=== PATIENT | male | born 1960 | race Two or more races ===

== ENCOUNTER 2021-12-01 14:41 | Inpatient (IN) | payer MEDICAID ==
[~2021-12-01] VITALS: Ht 182.9 cm; Wt 69.0 kg
[2021-12-01] MEDS ORDERED: ONDANSETRON HCL 4 MG/2 ML VIAL IV ONE (15:15)
[2021-12-01] MEDS ORDERED: SODIUM CHLORIDE 0.9% 1,000 ML IV ONE ×2 (15:15→20:15)
[2021-12-01 15:49] LABS: Basophils # (auto) 0 10 ^3/uL (0-0.2); Basophils % (auto) 0.2 % (0.0-2.0); Eosinophils # (auto) 0 10 ^3/uL (0-0.8); Hematocrit 46.4 % (41.0-53.0); Hemoglobin 14.9 g/dL (13.5-17.5); Lymphocytes # (auto) 0.4 10 ^3/uL (0.4-5.4); Lymphocytes % (auto) 2.7 % (10.0-50.0); Mean Corpuscular Hemoglobin 32.1 pg (28.0-32.0); Mean Corpuscular Hgb Conc. 32.2 g/dL (32.0-36.0); Mean Corpuscular Volume 99.7 fL (80.0-100.0); Monocytes # (auto) 0.7 10 ^3/uL (0-1.3); Monocytes % (auto) 4.6 % (0.0-12.0); Neutrophils # (auto) 14.4 10 ^3/uL (1.6-8.6); Neutrophils % (auto) 92.5 % (37.0-80.0); Nucleated Red Blood Cells % 0.1 %; Red Blood Cells 4.65 10^6/uL (4.5-5.90); White Blood Cell 15.6 10^3/uL (4.4-10.8)
[2021-12-01 15:57] LABS: Albumin 3.2 g/dL (3.4-5.0); Calcium 10.5 mg/dL (8.5-10.1); Potassium 5.5 mmol/L (3.5-5.1)
[2021-12-01 16:00] LABS: Lactic Acid w/Reflex 2.7 mmol/L (0.4-2.0)
[2021-12-01 16:06] LABS: BUN/Creatinine Ratio 28.3; Bilirubin, Total 0.8 mg/dL (0.2-1.0); Total Protein 7.1 g/dL (6.4-8.2)
[2021-12-01] MEDS ORDERED: DEXTROSE (50%) 50ML SYRG IV PRN (16:30)
[2021-12-01] MEDS ORDERED: CEFTRIAXONE SODIUM 2 GM in D5W 5% 50 ML IV ONE (16:30)
[2021-12-01] MEDS ORDERED: InsuLIN R (HUMAN) 100 UNITS in SODIUM CHL 0.9% 99 ML IV SCH (16:30)
[2021-12-01] MEDS ORDERED: SODIUM CHLORIDE 0.9% 2,000 ML IV ONE (17:00)
[2021-12-01] MEDS: ACCU-CHEK COMFORT CURVE STRIP VI SCH ×5 (17:21→22:43)
[2021-12-01] MEDS ORDERED: MORPHINE SULFATE INJECTION 2 MG/ML SYRG IV PRN (20:15)
[2021-12-01] MEDS ORDERED: HYDROcodone-ACET 5/325MG TAB PO PRN (20:15)
[2021-12-01] MEDS ORDERED: D5W/SOD CHLO 0.9% 1,000 ML IV ONE (20:15)
[2021-12-01] MEDS ORDERED: ACETAMINOPHEN 325 MG TAB PO PRN (20:15)
[2021-12-01 21:57] LABS: Urine Bacteria FEW /hpf (None Seen); Urine Blood Negative /uL (Negative); Urine Specific Gravity 1.019 (1.001-1.035); Urine WBC <1 /hpf (0 - 3)
[2021-12-01 22:32] LABS: Albumin 2.5 g/dL (3.4-5.0); Calcium 8.7 mg/dL (8.5-10.1); Potassium 4.4 mmol/L (3.5-5.1)
[2021-12-01 22:35] LABS: BUN/Creatinine Ratio 29.9; Bilirubin, Total 0.5 mg/dL (0.2-1.0)
[2021-12-02] MEDS: ACCU-CHEK COMFORT CURVE STRIP VI SCH ×16 (00:10→23:30)
[2021-12-02 02:42] LABS: BUN/Creatinine Ratio 40.2
[2021-12-02 03:04] LABS: Calcium 5.3 mg/dL (8.5-10.1); Potassium 2.5 mmol/L (3.5-5.1)
[2021-12-02] MEDS ORDERED: CALCIUM GLUC 1,000mg/50ml-NS 50 ML IV ONE (03:30)
[2021-12-02] MEDS: POTASSIUM CHL 10MEQ/50ML 50 ML IV SCH ×6 (04:00→10:41)
[2021-12-02] MEDS: ONDANSETRON HCL 4 MG/2 ML VIAL IV PRN (07:57)
[2021-12-02 08:10] LABS: Basophils # (auto) 0.1 10 ^3/uL (0-0.2); Basophils % (auto) 1.2 % (0.0-2.0); Eosinophils # (auto) 0.1 10 ^3/uL (0-0.8); Eosinophils % (auto) 0.5 % (0.0-7.0); Hematocrit 38.7 % (41.0-53.0); Hemoglobin 13.1 g/dL (13.5-17.5); Lymphocytes # (auto) 0.9 10 ^3/uL (0.4-5.4); Lymphocytes % (auto) 8.1 % (10.0-50.0); Mean Corpuscular Hemoglobin 32.5 pg (28.0-32.0); Mean Corpuscular Hgb Conc. 33.9 g/dL (32.0-36.0); Mean Corpuscular Volume 95.8 fL (80.0-100.0); Monocytes % (auto) 9.3 % (0.0-12.0); Neutrophils # (auto) 8.8 10 ^3/uL (1.6-8.6); Neutrophils % (auto) 80.9 % (37.0-80.0); Red Blood Cells 4.04 10^6/uL (4.5-5.90); White Blood Cell 10.9 10^3/uL (4.4-10.8)
[2021-12-02 08:14] LABS: Calcium 8.6 mg/dL (8.5-10.1); Potassium 4.2 mmol/L (3.5-5.1)
[2021-12-02 08:16] LABS: BUN/Creatinine Ratio 37.3
[2021-12-02] MEDS: FAMOTIDINE 20 MG TAB PO SCH (10:10)
[2021-12-02 11:14] LABS: Chloride 111 mmol/L (98-107); Potassium 5.2 mmol/L (3.5-5.1); Sodium 132 mmol/L (136-145)
[2021-12-02 12:06] LABS: Anion Gap 9 (5-15); BUN/Creatinine Ratio 36.8; Blood Urea Nitrogen 63 mg/dL (7-18); Calcium 8.3 mg/dL (8.5-10.1); Carbon Dioxide 12 mmol/L (21-32); GFR African American 52 mL/min; GFR Non-African American 43 mL/min; Glucose 227 mg/dL (74-106)
[2021-12-02] MEDS ORDERED: INSULIN LANTUS (GLARGINE) 1 /0.01ml (100units/ml) SC ONE (12:15)
[2021-12-02] MEDS ORDERED: DEXTROSE (50%) 50ML SYRG IV PRN (13:00)
[2021-12-02] MEDS: SODIUM CHLORIDE 0.9% 1,000 ML IV SCH ×2 (13:14→15:04)
[2021-12-02] MEDS: InsuLIN REG 1unit/0.01ml Soln (100units/ml) SC SCH ×3 (13:43→23:40)
[2021-12-02] MEDS: SODIUM BICARBONATE 650 MG TAB PO SCH ×2 (17:28→23:39)
[2021-12-02 21:35] VITALS: BP 134/82
[2021-12-02 21:40] VITALS: BP 134/82
[2021-12-02 22:00] VITALS: BP 134/82
[2021-12-02] MEDS: INSULIN LANTUS (GLARGINE) 1 /0.01ml (100units/ml) SC SCH (23:41)
[2021-12-03 05:00] VITALS: BP 108/67
[2021-12-03] MEDS: SODIUM CHLORIDE 0.9% 1,000 ML IV SCH ×3 (06:30→21:00)
[2021-12-03] MEDS: SODIUM BICARBONATE 650 MG TAB PO SCH ×4 (06:30→21:29)
[2021-12-03] MEDS: InsuLIN REG 1unit/0.01ml Soln (100units/ml) SC SCH ×4 (06:33→21:34)
[2021-12-03] MEDS: ACCU-CHEK COMFORT CURVE STRIP VI SCH ×4 (06:33→22:02)
[2021-12-03] MEDS: INSULIN LANTUS (GLARGINE) 1 /0.01ml (100units/ml) SC SCH ×2 (06:34→21:30)
[2021-12-03 07:59] LABS: Basophils # (auto) 0 10 ^3/uL (0-0.2); Basophils % (auto) 0.2 % (0.0-2.0); Eosinophils # (auto) 0 10 ^3/uL (0-0.8); Eosinophils % (auto) 0.8 % (0.0-7.0); Hemoglobin 11.9 g/dL (13.5-17.5); Lymphocytes # (auto) 0.8 10 ^3/uL (0.4-5.4); Lymphocytes % (auto) 14.7 % (10.0-50.0); Mean Corpuscular Hemoglobin 32.3 pg (28.0-32.0); Mean Corpuscular Hgb Conc. 33.9 g/dL (32.0-36.0); Mean Corpuscular Volume 95.5 fL (80.0-100.0); Monocytes # (auto) 0.6 10 ^3/uL (0-1.3); Monocytes % (auto) 10.3 % (0.0-12.0); Neutrophils # (auto) 4.2 10 ^3/uL (1.6-8.6); Red Blood Cells 3.67 10^6/uL (4.5-5.90); Red Cell Distribution Width 13.2 % (11.8-14.3); White Blood Cell 5.7 10^3/uL (4.4-10.8)
[2021-12-03 08:26] LABS: Calcium 8.1 mg/dL (8.5-10.1); Potassium 4.3 mmol/L (3.5-5.1)
[2021-12-03 08:29] LABS: BUN/Creatinine Ratio 29.9
[2021-12-03 09:00] VITALS: BP 115/74
[2021-12-03] MEDS: FAMOTIDINE 20 MG TAB PO SCH (10:30)
[2021-12-03] MEDS: ENOXAPARIN SOD 40 MG/0.4 ML SYRINGE SC SCH (10:32)
[2021-12-03 13:00] VITALS: BP 118/79
[2021-12-03 22:00] VITALS: BP 121/80
[2021-12-04 04:53] VITALS: BP 117/72
[2021-12-04] MEDS: SODIUM CHLORIDE 0.9% 1,000 ML IV SCH (05:05)
[2021-12-04] MEDS: SODIUM BICARBONATE 650 MG TAB PO SCH ×4 (05:44→22:02)
[2021-12-04] MEDS: ACCU-CHEK COMFORT CURVE STRIP VI SCH ×4 (05:44→22:03)
[2021-12-04] MEDS: INSULIN LANTUS (GLARGINE) 1 /0.01ml (100units/ml) SC SCH ×2 (05:50→22:05)
[2021-12-04] MEDS: InsuLIN REG 1unit/0.01ml Soln (100units/ml) SC SCH ×4 (05:51→22:05)
[2021-12-04 06:31] LABS: Calcium 8.3 mg/dL (8.5-10.1); Potassium 4.3 mmol/L (3.5-5.1)
[2021-12-04] MEDS: ONDANSETRON HCL 4 MG/2 ML VIAL IV PRN (06:31)
[2021-12-04 06:34] LABS: BUN/Creatinine Ratio 26.3
[2021-12-04 09:00] VITALS: BP 137/94
[2021-12-04] MEDS: FAMOTIDINE 20 MG TAB PO SCH (10:28)
[2021-12-04] MEDS: ENOXAPARIN SOD 40 MG/0.4 ML SYRINGE SC SCH (10:29)
[2021-12-04 13:00] VITALS: BP 113/70
[2021-12-04 17:00] VITALS: BP 107/81
[2021-12-04 19:04] LABS: Alcohol, Urine < 3.0 mg/dL (0-10); Amphetamine Screen, Urine NEGATIVE (NEGATIVE); Barbiturate Scree,Urine NEGATIVE (NEGATIVE); Benzodiazephine Screen, Urine NEGATIVE (NEGATIVE); Cannabinoid Screen, Urine NEGATIVE (NEGATIVE); Cocaine Screen, Urine NEGATIVE (NEGATIVE); Opiate Scree,Urine NEGATIVE (NEGATIVE); Phencyclidine Screen, Urine NEGATIVE (NEGATIVE)
[2021-12-04 21:11] LABS: Urine Bacteria NONE SEEN /hpf (None Seen); Urine WBC 1 /hpf (0 - 3)
[2021-12-04 22:00] VITALS: BP 116/74
[2021-12-04] MEDS ORDERED: PROPRANOLOL HCL 20 MG TAB PO SCH (22:00)
[2021-12-04] MEDS: PROPRANOLOL HCL 20 MG TAB PO SCH (22:02)
[2021-12-05 05:00] VITALS: BP 121/82
[2021-12-05] MEDS: SODIUM BICARBONATE 650 MG TAB PO SCH ×4 (05:38→22:00)
[2021-12-05] MEDS: PROPRANOLOL HCL 20 MG TAB PO SCH ×3 (05:38→22:00)
[2021-12-05] MEDS: ACCU-CHEK COMFORT CURVE STRIP VI SCH ×4 (05:38→22:00)
[2021-12-05] MEDS: InsuLIN REG 1unit/0.01ml Soln (100units/ml) SC SCH ×4 (06:03→22:00)
[2021-12-05] MEDS: INSULIN LANTUS (GLARGINE) 1 /0.01ml (100units/ml) SC SCH ×2 (06:03→22:00)
[2021-12-05 09:00] VITALS: BP 115/79
[2021-12-05] MEDS: FAMOTIDINE 20 MG TAB PO SCH (10:29)
[2021-12-05] MEDS: ENOXAPARIN SOD 40 MG/0.4 ML SYRINGE SC SCH (10:29)
[2021-12-05 13:00] VITALS: BP 123/80
[2021-12-05] MEDS ORDERED: INSLANTI SC (13:31)
[2021-12-05] MEDS ORDERED: PROP20TA73 PO (13:34)
[2021-12-05 17:00] VITALS: BP 125/80
[2021-12-05 19:03] VITALS: BP 125/80
[2021-12-05 19:18] VITALS: BP 125/80
[2021-12-05] MEDS ORDERED: INFLUENZA QUAD 2021-2022 0.5 ML SYRG IM ONE (20:45)
== END 2021-12-05 21:30 | disposition home or self-care (01) | DRG 420 ==
LOC: ER 14:43 → OVERFLOW 20:29 → TELE-WESTW 12-02 21:40
PROVIDERS: ADMIT Nurse Practitioner Family; ATTEND Nurse Practitioner Family
DX: E11.10 Type 2 diabetes mellitus with ketoacidosis without coma (principal); N17.0 Acute kidney failure with tubular necrosis; R65.11 Systemic inflammatory response syndrome (SIRS) of non-infectious origin with acute organ dysfunction; N18.31 Chronic kidney disease, stage 3a; E86.9 Volume depletion, unspecified; J06.9 Acute upper respiratory infection, unspecified; Z20.822 Contact with and (suspected) exposure to COVID-19; E11.22 Type 2 diabetes mellitus with diabetic chronic kidney disease; Z86.16 Personal history of COVID-19; Z79.4 Long term (current) use of insulin
CPT/HCPCS: 36415; 71045; 76775; 80048; 80053; 80307; 81001; 81015; 82962; 83036; 83605; 83735; 83880; 84439; 84443; 84484; 85025; 87040; 87426; 90686; 93005; 93306; 96361; 96365; 96367; 96368; 96372; 96375; 96376; 97116; 97163; 97530; 99291; G0378; J0696; J1815; J2405; J7060